=== PATIENT | male | born 1945 | race Caucasian/White ===

== ENCOUNTER 2018-08-19 10:03 | Day surgery (SDC) | payer OTHER ==
[~2018-08-19 10:03] MED LIST: CEFAZOLIN 1 GM INJ; CEFAZOLIN 2 GM/50 ML (PMX) 50 ML IVPB
[2018-08-19] MEDS: SOD CHLORIDE 0.9% 1,000 ML IV (11:03)
[2018-08-19] MEDS ORDERED: BUPIVACAINE 0.25% (MPF) 30 ML INJ (11:44)
[2018-08-19] MEDS ORDERED: FENTAnyl 50 MCG/ML VIAL (11:50)
[2018-08-19] MEDS ORDERED: HYDROmorphONE 1 MG/5 ML IV SYRINGE IV ×3 (12:00)
[2018-08-19] MEDS ORDERED: FENTAnyl 50 MCG/ML VIAL IV ×3 (12:00)
[2018-08-19] MEDS ORDERED: DIPHENHYDRAMINE 50 MG INJ IV (12:00)
[2018-08-19] MEDS ORDERED: MEPERIDINE 25 MG INJ IV (12:00)
[2018-08-19] MEDS ORDERED: ONDANSETRON 4 MG INJ IV ×2 (12:00→13:00)
[2018-08-19] MEDS ORDERED: ALBUTEROL 0.083% (NEB) 2.5 MG/3 ML AMP HHN (12:00)
[2018-08-19] MEDS ORDERED: METOCLOPRAMIDE 10 MG INJ IV (12:00)
[2018-08-19] MEDS: BUPIVACAINE 0.5% (SDV) 30 ML INJ (12:18)
[2018-08-19] MEDS: LIDOCAINE 1% (MPF) 30 ML INJ (12:18)
[2018-08-19] MEDS ORDERED: IBUPROFEN 600 MG TAB PO (13:00)
== END 2018-08-19 14:15 | disposition home or self-care (01) ==
LOC: SDS 10:03
DX: L72.0 Epidermal cyst (principal); E78.5 Hyperlipidemia, unspecified; E11.9 Type 2 diabetes mellitus without complications; I10 Essential (primary) hypertension
CPT/HCPCS: 11404; 82962; 88307